=== PATIENT | male | born 1970 | race Caucasian/White ===

== ENCOUNTER 2017-01-16 16:34 | Emergency (ER) | payer OTHER ==
[2017-01-16 17:06] VITALS: BP 112/75; PULSE 75; RESP 18; TEMP 98.1; O2SAT 95
--- NOTE | 2017-01-16 17:33 | UCPHY ---
H & P Patient Type: Established Smoking Status: Current every day smoker HPI/ROS: CHIEF COMPLAINT: low back pain HISTORY OF PRESENT ILLNESS: sudden onset of low back pain 2 days ago. This is primarily in the lumbar region radiates in the right side of the back. Mild to moderate pain at 1st now severe. Worse with any kind of movement or bending forward. Radiates down the right leg. No saddle anesthesia. No incontinence of bowel or bladder. No retention of bowel or bladder. No fever or chills. No IV drug use. History of this in the past without a formal diagnosis. No surgery. No other associated complaints or modifying factors PRIOR ORTHO INJURIES: Lumbar back pain ESTABLISHED ORTHOPEDIST: none REVIEW OF SYSTEMS: Ten systems reviewed and are negative unless otherwise noted in the HPI EXAMINATION General Appearance: Alert, no distress Head: normocephalic, atraumatic Eyes: Pupils equal and round, no conjunctival pallor or injection ENT, Mouth: Mucous membranes moist Neck: Normal inspection Respiratory: No dyspnea or retractions. No distress Cardiovascular: Pulses normal throughout. symmetric DP and PT pulses 2+. Brisk cap refill Back: Tender palpation in the lumbar region of the soft tissue. There is no midline tenderness. No bony crepitus or step-off or deformity. No thoracic tenderness. Range of motion intact but painful. Neurological: A&O, sensory symmetric, strength symmetric . Symmetric patellar reflexes are 2+. Strength is symmetric in the hips, knees, ankles. Skin: Warm and dry, no rash Extremities: Nontender, no pedal edema Psychiatric: Mood and affect normal DIFFERENTIAL DIAGNOSES: Including but not limited to Lumbar radiculopathy, disc bulge, disc herniation , lumbago lumbar strain MDM: 5:25 p.m. right-sided lumbar radiculopathy without any evidence of acute cord compression or cauda equina. He is symmetric with his strength and patellar reflexes. No saddle anesthesia. I will obtain a lumbar x-ray to rule out fracture, but my suspicion is for discopathy. Patient is comfortable with this plan 6:00 p.m. x-ray is normal as interpreted by me. Plan for discharge home with steroid therapy, muscle relaxant and short course of pain medication. He is to follow up with primary care physician for MRI should his symptoms persist. Return to the ER for any worsening pain, numbness, tingling, saddle anesthesia, incontinence or weakness of the lower extremities. He is comfortable this plan. I have answered all his questions. He actually has declined prednisone here at this point as he wants to make a decision about this later. ED Precautions: Worsening pain. Erythema, edema, cyanosis, pallor, paresthesia or anesthesia. SUPERVISION: This patient was independently evaluated without the aide of supervising physician. (Abel Hernandez) Constitutional: Initial Vital Signs Temperature (C) 36.7 C 01/16/17 17:01 Heart Rate 75 01/16/17 17:01 Respiratory Rate 18 01/16/17 17:01 Blood Pressure 112/75 01/16/17 17:01 O2 Sat (%) 95 01/16/17 17:01 O2 Delivery Mode Room Air Allergies/Adverse Reactions: metronidazole [From Flagyl] Allergy (Verified 01/16/17 17:00) cyclobenzaprine HCl [From Flexeril] Adverse Reaction (Intermediate, Verified 10/23 17:00) Home Medications: Medication Instructions Recorded Hydrocodone/APAP 5/325 [Himrod 1 - 2 tab PO Q4H PRN #10 tab 01/16/17 5/325 (*)] Methocarbamol [Robaxin 750 mg (*)] 1,500 mg PO TID PRN #18 tab 01/16/17 predniSONE [Deltasone] 60 mg PO DAILY #12 tablet 01/16/17 MDM/Departure - MDM Medications Given: Discontinued Medications Prednisone (Prednisone) 60 mg PO EDNOW ONE Stop: 01/16/17 17:29 Last Admin: 01/16/17 18:16 Dose: Not Given ED Course/Re-evaluation: Urgent Care PA supervision Physician documentation: The patient was evaluated and managed by the physician assistant real estate manager. My co- signature indicates that I have reviewed this chart and I agree with the findings and plan of care as documented. I am the secondary supervising physician. (Mann Pereyra) - Depart Disposition: Home, Routine, Self-Care Clinical Impression: Lumbar radicular pain, Acute low back pain Condition: Good Instructions: Lumbar Radiculopathy (ED), Lower Back Exercises (ED) Additional Instructions: low back exercises as prescribed. Follow up with primary care physician to discuss neurosurgery referral. Return to ER for worsening pain, saddle anesthesia, incontinence of bowel or bladder or weakness of the legs Prescriptions: Hydrocodone/APAP 5/325 [Himrod 5/325 (*)] 1 - 2 tab PO Q4H PRN #10 tab PRN Reason: Pain, Moderate Methocarbamol [Robaxin 750 mg (*)] 1,500 mg PO TID PRN #18 tab PRN Reason: Spasms predniSONE [Deltasone] 60 mg PO DAILY #12 tablet Referrals: Shon Valdez MD [Medical Doctor] - As per Instructions - PQRS PQRS Measurement: not applicable (Abel Hernandez)
[2017-01-16] MEDS: predniSONE 20 MG TAB PO ONE ×2 (17:51→18:16)
[2017-01-16] MEDS ORDERED: predniSONE 20 MG TAB ONE ×2 (17:52)
== END 2017-01-16 18:22 | disposition home or self-care (01) ==
LOC: CED 16:34
DX: M54.5 Low back pain (principal)
CPT/HCPCS: 72100-PO; 99214-PO; G0463-PO